=== PATIENT | male | born 1980 | race Caucasian/White ===

== ENCOUNTER 2017-11-14 16:25 | Emergency (ER) ==
[2017-11-14 16:35] VITALS: BP 126/70; TEMP 101; BMI 32.5
[2017-11-14] MEDS ORDERED: MOTRIN PO STA (17:12)
--- NOTE | 2017-11-14 17:13 | ED.PDOC ---
General ED Provider: Dr. TEGAN DENNIS Chief Complaint: Fever Stated Complaint: Sore throat, fever, chills and body aching. Onset earlier today. 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 Hx of prev strep throat Time Seen by Physician: 17:05 Mode of Arrival: Walk-In Information Source: Patient Nursing and Triage Documentation Reviewed and Agree: Yes Reviewed sepsis parameters & appropriate labs ordered?: Yes System Inflammatory Response Syndrome: Temp 101F or Greater, Pulse >90 BPM Sepsis Protocol: For patient's 13 years and over: Temp is 96.8 and below OR 101 and greater Pulse >90 BPM Resp >20/minute Acutely Altered Mental Status Are patient's symptoms suggestive of a new infection, such as: -Pneumonia -Skin, Soft Tissue -Endocarditis -UTI -Bone, Joint Infection -Implantable Device -Acute Abdominal Infection -Wound Infection -Meningitis -Blood Stream Catheter Infection -Unknown System Inflammatory Response Syndrome: Not Applicable Respiratory Complaint Exam - Respiratory Complaint/Exam Symptoms Are: Still present Timing: Constant Initial Severity: Moderate Current Severity: Severe Location: Throat Character: Reports: Dry cough Associated Signs and Symptoms: Reports: Dyspnea, Fever, Chills, Sore throat History of Healthcare-Acquired Pneumonia: No Related Surgical History: Reports: None Pulmonary Embolism Risk Factors: None Cardiac Risk Factors: Reports: None Pseudomonas Risk Factors: Reports: None Tuberculosis Risk Factors: Reports: None Status Asthmaticus Risk Factors: Reports: None Home Oxygen Use: No Recent Stress Test: No Recent Echo/LV Function: No Current Antibiotic Use: No Current Asthma Medication Use: No Respiratory Distress: None Inadequate Respiratory Effort: No Dysphagia Present: No Stridor Present: No JVD Present: No Accessory Muscle Use: No Diminished Breath Sounds: No Sinus Tenderness: None Grunting Respirations: No Kussmaul Respirations: No Differential Diagnoses: Influenza, Other (strep throat) Review of Systems - Review Of Systems Constitutional: Reports: Chills, Fever, Weakness Eyes: Reports: Pain Ears, Nose, Mouth, Throat: Reports: Throat pain Respiratory: Reports: Cough Cardiac: Reports: No symptoms : Reports: No symptoms Musculoskeletal: Reports: No symptoms Skin: Reports: No symptoms Neurological: Reports: No symptoms Endocrine: Reports: No symptoms Hematologic/Lymphatic: Reports: No symptoms All Other Systems: Reviewed and Negative Past Medical History - Past Medical History Previously Healthy: Yes Endocrine: Reports: None Cardiovascular: Reports: None Respiratory: Reports: None, Other (strep throat) Hematological: Reports: None Gastrointestinal: Reports: None Genitourinary: Reports: None Neuro/Psych: Reports: None Musculoskeletal: Reports: None Cancer: Reports: None - Surgical History General Surgical History: Reports: Appendectomy - Family History Family History: Reports: None - Social History Smoking Status: Current every day smoker, Light tobacco smoker Hx Substance Use: No Alcohol Screening: None - Immunizations Tetanus Shot up to Date: Yes Physical Exam - Physical Exam Appearance: Ill-appearing Ill-appearing: Moderate Pain Distress: Mild Eyes: GANESH, EOMI, Conjunctiva clear ENT: Ears normal, Nose normal, Erythema Neck: Supple Respiratory: Airway patent, Breath sounds clear, Breath sounds equal (a) Cardiovascular: RRR, Pulses normal, No rub, Tachycardia GI/: Soft, Nontender, No masses, Bowel sounds normal, No Organomegaly, Tender , Bowel sounds hyperactive Musculoskeletal: Normal strength, ROM intact, No edema, No calf tenderness Skin: Warm, Dry, Normal color, Pale, Diaphoretic, Cyanotic Neurological: Sensation intact, Motor intact, Alert, Oriented Psychiatric: Affect appropriate, Mood appropriate Re-Evaluation - Re-Evaluation Time of Re-Evaluation: 17:50 Status: Improved Vital Signs Stable: Yes Pain Level: 2/10 Appearance: NAD Lungs: Clear Skin: Warm and Dry Neuro: Alert and Oriented X3 CV: RRR Additional Comments: Discuss results of lab testing and to take meds as directed Critical Care Note - Critical Care Note Total Time (mins): 0 Course - Course Hematology/Chemistry: 11/14/17 17:23 Orders, Labs, Meds: Lab Review 11/14/17 11/14/17 17:23 17:29 WBC 6.80 RBC 5.12 Hgb 15.3 Hct 44.6 MCV 87.1 MCH 29.9 MCHC 34.3 RDW Coeff of Priscilla 13.3 Plt Count 197 Immature Gran % (Auto) 0.1 Neut % (Auto) 74.2 Lymph % (Auto) 11.6 [place] % (Auto) 14.0 H Eos % (Auto) 0.0 Baso % (Auto) 0.1 Immature Gran # (Auto) 0.0 Neut # 5.0 Lymph # 0.8 [place]urel # 1.0 Eos # 0.0 Baso # 0.0 Influenza A (Rapid) Negative by naat Influenza B (Rapid) Negative by naat Orders Category Date Time Status BLOOD CULTURE (ED ONLY) Stat LAB 11/14/17 17:23 Received CBC W/ AUTO DIFF Stat LAB 11/14/17 17:23 Completed CMP [COMPREHENSIVE METABOLIC PANEL] Stat LAB 11/14/17 17:23 Received FLU A/B MOLECULAR Stat LAB 11/14/17 17:29 Completed RAPID STREP SCREEN [MOLECULAR GROUP A STREP] Stat LAB 11/14/17 17:29 Completed Ibuprofen [Motrin] MEDS 11/14/17 17:12 Discontinued 600 mg PO ONCE STA Medications Discontinued Medications Generic Name Dose Route Start Last Admin Trade Name Len PRN Reason Stop Dose Admin Ibuprofen 600 mg 11/14/17 17:12 11/14/17 17:21 Motrin PO 11/14/17 17:13 600 mg ONCE STA Administration Vital Signs: Temp Pulse Resp BP Pulse Ox 11/14/17 16:27 101 F H 118 H 18 126/70 98 Departure - Departure Time of Disposition: 17:50 Disposition: HOME SELF-CARE Discharge Problem: Streptococcal pharyngitis Instructions: Strep Throat (ED) Condition: Fair Pt referred to PMD for follow-up: Yes (10 days) IPMP verified?: No Additional Instructions: Take all meds as directed including antibiotic Tylenol or Ibuprofen for temp elevation >101 deg F or pain May take cough and cough meds as needed Follow up PCP in next week Prescriptions: Penicillin V Potassium [Penicillin Vk Tab] 500 mg PO Q8HR #30 tablet Allergies/Adverse Reactions: Allergies No Known Allergies Allergy (Verified 11/14/17 16:36) Home Medications: Ambulatory Orders Penicillin V Potassium [Penicillin Vk Tab] 500 mg PO Q8HR #30 tablet 11/14/17 Disposition Discussed With: Patient, Family
== END 2017-11-14 18:03 | disposition home or self-care (01) ==
LOC: ED 16:25
DX: J02.0 Streptococcal pharyngitis (principal); F17.210 Nicotine dependence, cigarettes, uncomplicated
CPT/HCPCS: 36415; 80053; 85025; 87040; 87502; 87651; 99283